=== PATIENT | female | born 1940 | race Caucasian/White ===

== ENCOUNTER → 2019-04-09 08:23 | Outpatient (CLI) | payer OTHER ==
[2016-01-02 09:57] VITALS: BMI 31.4
[~2019-04-09 08:23] MED LIST: ASPIRIN81 MG PO; CORDARONE200 MG PO; FERROUS SULFAT325 MG PO; PAXIL20 MG PO; PRAVACHOL40 MG PO; PROAIR HFA8.5 GM INH; SYNTHROID75 MCG PO; ULTRAM50 MG PO
== END | disposition home or self-care (01) ==
LOC: D.HCCARDIO 08:23
PROVIDERS: ATTEND Internal Medicine Cardiovascular Disease
DX: I35.9 Nonrheumatic aortic valve disorder, unspecified (principal)

== ENCOUNTER 2020-03-16 10:35 | Inpatient (IN) | payer OTHER ==
[~2020-03-16] VITALS: Ht 160 cm; Wt 93.8 kg
[2020-03-16] MEDS ORDERED: OMEPRAZOLE20 M1 PO (10:52)
[2020-03-16 11:21] LABS: BASOPHILS 0.2 % (0-2); EOSINOPHILS 5.1 % (0-7); HEMATOCRIT 23.2 % (36.0-48.0); IMMATURE GRANULOCYTES 0.2 % (0-5); LYMPHOCYTES 19.9 % (15-50); MCHC 27.2 g/dL (31.0-37.0); MCV 68.6 fL (80.0-100.0); MONOCYTES 8.5 % (2-11); NEUTROPHILS 66.1 % (40-80); RBC 3.38 10x6/uL (4.00-5.40); RDW 18.8 % (11.5-14.5); WBC 9.3 10x3/uL (4.8-10.8)
[2020-03-16 11:24] LABS: CALC OSMOLALITY 278 mosm/kg (275-300); CALCIUM 8.7 mg/dL (8.5-10.1); CHLORIDE - SERUM 106 mmol/L (98-107); CREATININE - SERUM 1.4 mg/dL (0.6-1.3); GLUCOSE 112 mg/dL (74-106); POTASSIUM - SERUM 4.3 mmol/L (3.5-5.1); SODIUM 138 mmol/L (136-145); UREA NITROGEN 19 mg/dL (7-18); eGFR NON AFRICAN AMERICAN 38 mL/min (90-120)
[2020-03-16 11:27] LABS: HEMOGLOBIN 6.3 g/dL (12-16)
[2020-03-16 11:28] LABS: MCH 18.6 pg (26.0-34.0); PLATELET COUNT 326 10x3/uL (130-400)
[2020-03-16 11:42] LABS: ALBUMIN 3.6 g/dL (3.4-5.0); ALKALINE PHOSPHATASE 97 U/L (30-120); ALT (SGPT) 17 U/L (10-68); BILIRUBIN - TOTAL 0.19 mg/dL (0.2-1.3); CKMB 1.6 U/L (0.0-3.6); CREATINE KINASE 136 UL (21-215); PRO BNP 1119 pg/mL (0-450); PROTEIN - SERUM 7.4 g/dL (6.4-8.2)
[2020-03-16 11:45] LABS: APTT 27.5 SECONDS (22.8-39.4); INR 1.13 (0.85-1.17); PROTIME 14.4 SECONDS (11.6-15.0)
[2020-03-16 12:04] VITALS: BP 127/60
[2020-03-16 13:04] VITALS: BP 159/72
[2020-03-16 13:49] VITALS: BP 165/70; BMI 36.9
--- NOTE | 2020-03-16 13:50 | NUR ---
pt received to 2140 awake, alert and oriented. Pt reports dyspnea on exertion for > 2 weeks. Reports no dyspnea at this time,as she is at rest. Hgb low 1 unit PRBC ordered to transfuse. Pt denies any further issues. No acute distress noted will continue to monitor.
--- NOTE | 2020-03-16 15:47 | NUR ---
1 unit PRBC transfusing, pt tolerating well denies any issues. will continue to monitor.
[2020-03-16 16:44] LABS: % SATURATION 2 % (15-55); IRON 12 ug/dl (35-150); TOTAL IRON BIND CAPACITY 441 ug/dl (260-445); UNSAT IRON BIND CAPACITY 429 ug/dl (150-375)
--- NOTE | 2020-03-16 17:17 | NUR ---
PT COMPLETED TRANSFUSION OF 1 UNIT PRBC TOLERATED WELL NO DISTRESS NOTED, VSS.
[2020-03-16 17:26] VITALS: BP 139/71
--- NOTE | 2020-03-16 18:00 | NUR ---
DR LANCASTER NOTIFIED OF CONSULT
--- NOTE | 2020-03-16 19:00 | NUR ---
REPORT RECEIVED, WILL CONTINUE POC. PATIENT IS AAOX4, SITTING UP IN BED. NO S/S OF DISTRESS OBSERVED, RR EVEN AND UNLABORED ON ROOM AIR. PIV TO RT HAND INFUSING NS @ 50. PATIENT DENIES NEEDS AT THIS TIME. CL IN REACH, BED LOCKED AND LOWERED. WILL CTM.
--- NOTE | 2020-03-16 19:56 | NUR ---
RECEIVED CALL FROM FAM STOUT APN INSTRUCTED TO UPDATE PATIENT MED REC AND TO ASKED WHAT TYPE OF VALVE REPLACEMENT SHE RECEIVED. MED REC AND PHARM UPDATED AND PATIENT STATES SHE HAD A PIG VALVE PUT IN.
[2020-03-16 20:00] VITALS: BP 149/57
[2020-03-16 22:13] LABS: HEMATOCRIT 23.6 % (36.0-48.0)
[2020-03-16 22:24] LABS: HEMOGLOBIN 6.7 g/dL (12-16)
--- NOTE | 2020-03-16 22:35 | NUR ---
RECEIVED CRITICAL HEMOGLOBIN FROM LAB [facility]. INFORMED FAM STOUT APN WHICH WAS ON THE FLOOR. PATIENT WAS SUPPOSED TO HAVE ALREADY GOTTEN 2 UNITS PER LOC [facility]. THIS NURSE COULD NOT FIND ORDER TO TRANSFUSE PRBC. PATIENT STATES SHE ALREADY RECEIVED 1 UNIT EARLIER TODAY. ORDERS RECEIVED TO TRANSFUSE ANOTEHR UNIT. CALLED LAB TO PREPARE BLOOD. WILL INFUSE UPON RECEIVING.
--- NOTE | 2020-03-16 23:37 | NUR ---
INITIATED PRBC'S NOW.
[2020-03-17] VITALS: BP 143/61
[2020-03-17 04:00] VITALS: BP 156/70
[2020-03-17 08:25] VITALS: BP 154/80
[2020-03-17 09:15] LABS: BASOPHILS 0.2 % (0-2); EOSINOPHILS 4.4 % (0-7); IMMATURE GRANULOCYTES 0.7 % (0-5); LYMPHOCYTES 12.5 % (15-50); MCH 22.7 pg (26.0-34.0); MCHC 30.6 g/dL (31.0-37.0); MEAN PLATELET VOLUME 9.2 fL (7.4-10.4); MONOCYTES 7.8 % (2-11); NEUTROPHILS 74.4 % (40-80); PLATELET COUNT 274 10x3/uL (130-400); RDW 21.5 % (11.5-14.5); WBC 8.9 10x3/uL (4.8-10.8)
[2020-03-17 09:29] LABS: HEMOGLOBIN 10.1 g/dL (12-16); MCV 74.2 fL (80.0-100.0); RBC 4.45 10x6/uL (4.00-5.40)
[2020-03-17 09:50] LABS: ALBUMIN 3.4 g/dL (3.4-5.0); ANION GAP 13.9 mmol/L (8-16); BILIRUBIN - TOTAL 0.67 mg/dL (0.2-1.3); CALCIUM 8.5 mg/dL (8.5-10.1); CARBON DIOXIDE 22.6 mmol/L (21.0-32.0); CREATININE - SERUM 1.3 mg/dL (0.6-1.3); MAGNESIUM - SERUM 2.3 mg/dL (1.8-2.4); POTASSIUM - SERUM 4.5 mmol/L (3.5-5.1); PROTEIN - SERUM 6.8 g/dL (6.4-8.2)
[2020-03-17 09:51] LABS: % SATURATION 15 % (15-55); IRON 64 ug/dl (35-150); TOTAL IRON BIND CAPACITY 414 ug/dl (260-445); UNSAT IRON BIND CAPACITY 350 ug/dl (150-375)
--- NOTE | 2020-03-17 10:19 | NUR ---
I have reviewed this patient and I concur with the Shift Assessment completed by the Licensed Practical Nurse today this shift.
[2020-03-17 13:05] VITALS: BP 137/66
[2020-03-17 15:38] VITALS: BP 142/67
--- NOTE | 2020-03-17 19:32 | NUR ---
REPORT RECEIVED, WILL CONTINUE POC. PATIENT IS AAOX4, LYING IN SEMI-FOWLERS POSITION. NO S/S OF DISTRESS OBSERVED, RR EVEN AND UNLABORED ON 2L O2 VIA NC. PATIENT DENIES NEEDS AT THIS TIME. CL IN REACH, BED LOCKED AND LOWERED. WILL CTM.
[2020-03-17 20:00] VITALS: BP 168/83
[2020-03-18] VITALS: BP 128/86
--- NOTE | 2020-03-18 01:41 | NUR ---
I have reviewed this patient and I concur with the Shift Assessment completed by the Licensed Practical Nurse today this shift.
[2020-03-18 04:00] VITALS: BP 167/84
[2020-03-18 05:41] LABS: BASOPHILS 0.2 % (0-2); EOSINOPHILS 4.6 % (0-7); HEMATOCRIT 34.9 % (36.0-48.0); HEMOGLOBIN 10.5 g/dL (12-16); IMMATURE GRANULOCYTES 0.4 % (0-5); LYMPHOCYTES 18.4 % (15-50); MCH 22.5 pg (26.0-34.0); MCHC 30.1 g/dL (31.0-37.0); MCV 74.9 fL (80.0-100.0); MEAN PLATELET VOLUME 9.1 fL (7.4-10.4); MONOCYTES 9.9 % (2-11); NEUTROPHILS 66.5 % (40-80); PLATELET COUNT 278 10x3/uL (130-400); RBC 4.66 10x6/uL (4.00-5.40); RDW 22.2 % (11.5-14.5); WBC 8.3 10x3/uL (4.8-10.8)
[2020-03-18 05:56] LABS: CALCIUM 8.9 mg/dL (8.5-10.1); CARBON DIOXIDE 22.6 mmol/L (21.0-32.0); CREATININE - SERUM 1.5 mg/dL (0.6-1.3); MAGNESIUM - SERUM 2.5 mg/dL (1.8-2.4)
[2020-03-18 05:59] LABS: POTASSIUM - SERUM 3.6 mmol/L (3.5-5.1)
--- NOTE | 2020-03-18 07:47 | NUR ---
PT RECEIVED AWAKE AND ALERT. PULSE OX CHECKED AND 92% ON ROOM AIR. ASKING IF MAY GET TO GO HOME TODAY.
[2020-03-18 08:42] VITALS: BP 112/63
[2020-03-18 13:21] VITALS: BP 153/75
--- NOTE | 2020-03-18 15:56 | MORECARE ---
CASE MANAGEMENT DISCHARGE SUMMARY PATIENT: IVY SCOTT UNIT: [id number] ADM DATE: 03/16/20 AGE: 79 : 42 SEX: F ROOM/BED: D.8770 AUTHOR: DENNIS,DOC PHYSICIAN: REFERRING PHYSICIAN: DILLAN FRANCES MD DATE OF SERVICE: 03/18/20 Discharge Plan Patient Name: IVY SCOTT Facility: [facility]:[place] : 1940 Planned Disposition: Home Anticipated Discharge Date: Discharge Date: Expected LOS: 0 Initial Reviewer: [email or web address] Initial Review Date: 03/16/2020 Generated: 03/18/20 4:55 pm Comments DCP- Discharge Planning Updated by [email or web address]: Shadia Malave on 03/18/20 2:[address] Patient Name: IVY SCOTT Admission Status: ER Accout number: [id number] Admission Date: 03-16-2020 : 1940 Admission Diagnosis:ANEMIA, UNSPECIFIED Attending: DILLAN PAYTON Current LOS: 2 Anticipated DC Date: Planned Disposition: Home Primary Insurance: IMN Discharge Planning Comments: ANTICIPATED DC NEEDS: denied known dc needs CM met with patient to complete initial dc planning assessment. CM educated patient on the CM role and verbal consent given by patient to complete assessment. CM verified patient's address, phone number, and emergency contact phone numbers. Sean () is currently at bedside, and will transport the patient home. Patient lives at home with her and is independent of all ADL'S. At discharge patient plans to return home and feels this is a safe discharge. CM discussed availability of home health, rehab services, and medical equipment. Patient denied known discharge needs at this time. FREDDIE declination signed for services. Technical Staff Engineer: Shadia Malave MSN,RN,CM DCPIA - Discharge Planning Initial Assessment Updated by [email or web address]: Shadia Malave on 03/18/20 3:50 pm * Is the patient Alert and Oriented? Yes * How many steps to enter\exit or inside your home? 0/0 * Pharmacy [facility] * Preadmission Environment Home with Family * ADLs Independent * Equipment None * List name and contact numbers for known caregivers / representatives who currently or will assist patient after discharge: Sean at bedside. * Verbal permission to speak to the caregivers and representatives has been obtained from the patient. Yes * Community resources currently utilized None * Additional services required to return to the preadmission environment? No * Can the patient safely return to the preadmission environment? Yes * Has this patient been hospitalized within the prior 30 days at any hospital? No Coverage Notice Reviewer: [email or web address] Torrey Malave Notice Issued Date-Time: 03/18/2020 15:30 Notice Type: Patient Choice Letter Notice Delivered To: Patient Relationship to Patient: Molder Apprentice Name: Delivery Method: HAND - Hand Delivered Ria Days: Prior Verbal Notification: Recipient Understood Notice: Yes Recipient Signature: Med Rec Note Co-signed by Attending: Coverage Notice Comment: FREDDIE declination signed for Patient Name: IVY SCOTT Page [id number] at 1556 All edits/amendments must be made on the electronic document DICTATION DATE: 03/18/201554 CONTROL ROOM TECHNICIAN: WARREN 03/18/201554 RPT#: [id number] DC DATE: STATUS: ADM IN [facility] [address] [place] [address] END OF REPORT
--- NOTE | 2020-03-18 15:58 | NUR ---
PT'S DISCHARGE INSTRUCTIONS REVIEWED AND SIGNED. NO SCRIPTS NOTED. AT BEDSIDE FOR TRANSPORTATION. IV REMOVED, TELEMETRY REMOVED.
[2020-04-04 18:21] VITALS: Ht 160 cm; Wt 93.8 kg
== END 2020-03-18 16:26 | disposition home or self-care (01) | DRG 380 ==
LOC: D.ER 10:35 → D.M2 12:44
PROVIDERS: Family Medicine; Internal Medicine Gastroenterology; Internal Medicine Hematology & Oncology; ADMIT Family Medicine; ATTEND Family Medicine
PROC: 0DB68ZX Excision of Stomach, Via Natural or Artificial Opening Endoscopic, Diagnostic (ICD-10-PCS; 2020-03-17)
PROC: 0DB98ZX Excision of Duodenum, Via Natural or Artificial Opening Endoscopic, Diagnostic (ICD-10-PCS; principal; 2020-03-17 07:30)
DX: K22.11 Ulcer of esophagus with bleeding (principal); I50.43 Acute on chronic combined systolic (congestive) and diastolic (congestive) heart failure; N17.9 Acute kidney failure, unspecified; D50.9 Iron deficiency anemia, unspecified; I48.0 Paroxysmal atrial fibrillation; E78.5 Hyperlipidemia, unspecified; E03.9 Hypothyroidism, unspecified; K21.0 Gastro-esophageal reflux disease with esophagitis

== ENCOUNTER → 2020-04-20 13:21 | Outpatient (CLI) | payer OTHER ==
[2020-04-04 18:21] VITALS: BMI 36.9
[~2020-04-20 13:21] MED LIST changes: +OMEPRAZOLE20 M1 PO
== END | disposition home or self-care (01) ==
LOC: D.HCCECHO 13:21
PROVIDERS: ATTEND Internal Medicine Cardiovascular Disease
DX: I10 Essential (primary) hypertension (principal)

== ENCOUNTER 2020-05-18 14:05 | Emergency (ER) | payer OTHER ==
[~2020-05-18] VITALS: Ht 160 cm; Wt 90.9 kg
[2020-05-18 14:27] VITALS: Ht 160 cm; Wt 90.9 kg
[2020-05-18 17:31] LABS: BASOPHILS 0.2 % (0-2); EOSINOPHILS 0.4 % (0-7); HEMATOCRIT 39.9 % (36.0-48.0); HEMOGLOBIN 12.3 g/dL (12-16); IMMATURE GRANULOCYTES 0.3 % (0-5); LYMPHOCYTES 11.6 % (15-50); MCH 25.4 pg (26.0-34.0); MCHC 30.8 g/dL (31.0-37.0); MCV 82.3 fL (80.0-100.0); MEAN PLATELET VOLUME 9.3 fL (7.4-10.4); MONOCYTES 4.1 % (2-11); NEUTROPHILS 83.4 % (40-80); PLATELET COUNT 249 10x3/uL (130-400); RBC 4.85 10x6/uL (4.00-5.40); RDW 22.4 % (11.5-14.5); WBC 9.9 10x3/uL (4.8-10.8)
[2020-05-18 17:46] LABS: CALC OSMOLALITY 274 mosm/kg (275-300); CARBON DIOXIDE 27.4 mmol/L (21.0-32.0); CHLORIDE - SERUM 102 mmol/L (98-107); CREATININE - SERUM 1.1 mg/dL (0.6-1.3); GLUCOSE 106 mg/dL (74-106); POTASSIUM - SERUM 4.3 mmol/L (3.5-5.1); SODIUM 137 mmol/L (136-145); UREA NITROGEN 16 mg/dL (7-18); eGFR NON AFRICAN AMERICAN 51 mL/min (90-120)
[2020-05-18 17:49] LABS: BILIRUBIN NEGATIVE (NEGATIVE); GLUCOSE NEGATIVE (NEGATIVE); KETONE NEGATIVE (NEGATIVE); NITRITE POSITIVE (NEGATIVE); UROBILINOGEN NORMAL (NORMAL)
[2020-05-18 17:50] LABS: BACTERIA MANY /hpf (NEGATIVE); EPITHELIAL CELLS 0-5 /hpf (0-5); RED CELLS - URINE OCC /hpf (0-5); WHITE CELLS - URINE 0-5 /hpf (NEGATIVE)
[2020-05-18 18:03] LABS: ALKALINE PHOSPHATASE 94 U/L (30-120); ALT (SGPT) 23 U/L (10-68); BILIRUBIN - TOTAL 0.33 mg/dL (0.2-1.3); CKMB 0.9 U/L (0.0-3.6); CREATINE KINASE 103 UL (21-215); PRO BNP 310 pg/mL (0-450); PROTEIN - SERUM 8.3 g/dL (6.4-8.2); THYROID STIMULATING HORMONE 1.15 uIU/mL (0.36-3.74)
[2020-05-18] MEDS ORDERED: BACTRIM DS TAB1 EAC1 PO (18:43)
[2020-05-18 19:24] VITALS: BP 159/71
== END 2020-05-18 19:25 | disposition home or self-care (01) ==
LOC: D.ER 14:05
PROVIDERS: Family Medicine
DX: N39.0 Urinary tract infection, site not specified (principal); R53.1 Weakness; K21.9 Gastro-esophageal reflux disease without esophagitis